=== PATIENT | male | born 1945 | race Caucasian/White ===

== ENCOUNTER → 2017-02-07 | Outpatient (CLI) | payer MEDICARE ==
[2017-02-07 13:12] LABS: Blood Urea Nitrogen 16 mg/dL (9-20); Non-African American GFR(MDRD) >60 (>60 ml/min/1.73 sqM)
--- NOTE | 2017-02-07 14:24 | CT ---
EXAMINATION TYPE: CT abdomen w con DATE OF EXAM: 02/07/2017 COMPARISON: NONE INDICATION: RLQ pain DLP: 1403.7 mGycm, Automated exposure control for dose reduction was used. CONTRAST: 100 mL of Omnipaque 300. Study performed with Oral Contrast TECHNIQUE: Axial images were obtained from above the diaphragm to the pubic rami in the axial plane a t 5 mm thick sections. Reconstructed images are reviewed on the computer in the coronal plane. FINDINGS: Limited CT sections are obtained the lung bases. The lung bases are clear. Coronary artery calcific ation is noted. CT ABDOMEN: Liver: There is moderate fatty infiltration to the liver. No discrete masses are evident. Spleen: Normal Pancreas: Normal Adrenal glands: The adrenal glands are normal. Gallbladder: Normal Kidneys: No masses are evident. No hydronephrosis is present. No cysts are present. Delayed images were obtained through the kidneys, which remain unremarkable. Aorta: Vascular calcification is within the aorta. Inferior vena cava: Normal. Loops of bowel within the abdomen are normal. There are loops of bowel which are incompletely dis tended or lack oral contrast limiting their evaluation. Appendix is nyozo-mw-[id number] right lower quadrant within the pelvis is excluded from the kgspm-sz-wixg. Hernias cannot be evaluated in the inguinal region. Note is made of postsurgical changes within the l umbar spine. No obvious lytic or sclerotic metastases are identified. IMPRESSIONS: 1. Moderate fatty infiltration of the liver. 2. Exam is limited to the CT abdomen. Appendix right lower quadrant within the pelvis and pelvic osse ous structures including the inguinal regions are out of the [id number]-ej-[id number]. CT pelvis can be performe d for additional evaluation of right lower quadrant pain.
== END | disposition home or self-care (01) ==
LOC: RADCTMAIN 12:15
PROVIDERS: ATTEND Family Medicine
DX: K76.0 Fatty (change of) liver, not elsewhere classified (principal)
CPT/HCPCS: 82565; 84520; 74160; 36415; Q9967

== ENCOUNTER → 2019-01-03 | Outpatient (CLI) | payer MEDICARE, OTHER ==
[2019-01-03 14:21] LABS: African American GFR (CKD) >90 (>60 ml/min/1.73 sqM); Blood Urea Nitrogen 15 mg/dL (9-20); Non-African American GFR(CKD) 87 (>60 ml/min/1.73 sqM)
--- NOTE | 2019-01-04 05:20 | CT ---
EXAMINATION TYPE: CT abdomen pelvis w con DATE OF EXAM: 01/03/2019 COMPARISON: CT abdomen 02/07/2017 HISTORY: 73-year-old male Pelvic and perineal pain. RLQ pain. Hx lymphoma, prostate ca TECHNIQUE: Contiguous axial scanning of the abdomen and pelvis following administration of 100 ml Iso annabella 300 IV contrast. Delayed images through the kidneys and coronal/sagittal reconstructions perform ed. CT DLP: 1298.30 mGycm Automated exposure control for dose reduction was used. FINDINGS: Heart normal size without pericardial effusion. Strandy atelectasis at the lung bases without pleural effusion. Liver enlarged measuring 24.0 cm with low attenuation. Subcentimeter hypodensity posterior right hepa tic dome is unchanged from 2017 suggesting benign cyst. A couple additional scattered tiny subcentime ter hypodensities also likely represent cysts. No biliary ductal dilatation. Portal venous system is patent. Gallbladder, adrenal glands, spleen, and pancreas appear within normal limits. A few scattered cortical cysts within the kidneys, largest measuring 1.4 cm, unchanged from 2017. Left kidney, however, shows some patchy hypodensity medial aspect of the upper pole, refer to axial i mage 37 of the delayed kidney images, series 5. On the coronal series, this corresponds to beam harde johnny artifact in a linear, bandlike distribution. Ifbt-zt-ugnwtpym atherosclerotic calcifications infrarenal abdominal aorta without aneurysm. No dilated small bowel, free fluid, or free air. No mesenteric or retroperitoneal lymphadenopathy. Scattered mild stool. Generalized colonic diverticulosis no pericolonic inflammatory change. The appendix is located within the right inguinal canal, refer to axial image 86 and coronal image 28 . No associated thickening, fluid distention, or surrounding inflammation. Bladder urine distended. Multiple pelvic limits. No abnormal fluid collection in the pelvis or pelvic lymphadenopathy. Bones: Mild degenerative changes at the hips. Left L5 hemisacralization. Posterior and interbody lumb ar fusion from L1 through L5 levels with corresponding laminectomies. IMPRESSION: 1. SMALL RIGHT INGUINAL HERNIA CONTAINING THE ENTIRE LENGTH OF THE APPENDIX. NO SPECIFIC SIGNS OF ACU TE APPENDICITIS AT THIS TIME. NOTE THAT CASES OF APPENDICEAL INCARCERATION WITHIN THE HERNIA AND ACUT E APPENDICITIS (AMYAND HERNIA) HAVE BEEN DESCRIBED. NO ACUTE CHANGES AT THIS TIME. 2. GENERALIZED COLONIC DIVERTICULOSIS WITHOUT EVIDENCE FOR ACUTE DIVERTICULITIS. 3. HEPATOMEGALY (24.0 CM) WITH HEPATIC STEATOSIS.
== END | disposition home or self-care (01) ==
LOC: RADCTMAIN 13:08
PROVIDERS: ATTEND Family Medicine
DX: K40.90 Unilateral inguinal hernia, without obstruction or gangrene, not specified as recurrent (principal); K57.30 Diverticulosis of large intestine without perforation or abscess without bleeding; K76.0 Fatty (change of) liver, not elsewhere classified
CPT/HCPCS: 82565; 84520; 74177; 36415; Q9967 ×2

== ENCOUNTER → 2019-09-27 | Outpatient (CLI) | payer MEDICARE, OTHER ==
--- NOTE | 2019-09-27 11:56 | XR ---
EXAMINATION TYPE: XR cervical spine limited DATE OF EXAM: 09/27/2019 COMPARISON: NONE HISTORY: Pain TECHNIQUE: 2 views are submitted. FINDINGS: The odontoid is intact. There are no compression deformities. The prevertebral soft tissue structur es are within normal limits. Severe degenerative disc disease and spurring C3-C4 with posterior spon dylosis and facet arthropathy Postsurgical changes involving C4-C7. Multilevel facet arthropathy. Calcification soft tissue the nec k likely vascular. IMPRESSION: 1. Severe degenerative disc disease with spurring C3-C4. Multilevel facet arthropathy. 2. Postsurgical changes..
--- NOTE | 2019-09-27 12:00 | XR ---
EXAM TYPE: LUMBAR SPINE X RAY SERIES COMPARISON: 08/01/2011 HISTORY: Pain TECHNIQUE: 4 views are submitted. FINDINGS: Extensive postsurgical changes noted. There now appears to be severe degenerative disc disease at the approximate level of L1-L2. Vascular calcifications are noted. There appear to be 6 lumbar vertebral body. IMPRESSION: 1. Postsurgical changes with severe degenerative disc disease and vacuum disc at L1-L2.
== END | disposition home or self-care (01) ==
LOC: RADXRYALE 10:39
PROVIDERS: ATTEND Family Medicine
DX: M50.31 Other cervical disc degeneration, high cervical region (principal); M51.36 Other intervertebral disc degeneration, lumbar region; M47.812 Spondylosis without myelopathy or radiculopathy, cervical region; Z98.890 Other specified postprocedural states
CPT/HCPCS: 72040; 72100

== ENCOUNTER → 2019-10-04 | Outpatient (CLI) | payer MEDICARE, OTHER ==
--- NOTE | 2019-10-05 03:30 | MR ---
EXAMINATION TYPE: MR cspine/lspine wo/w con DATE OF EXAM: 10/04/2019 COMPARISON: Lumbar spine MR scan 03/30/2011 HISTORY: Neck clicking, LBP, hx cervical/lumbar surgery CONTRAST: Standard multiplanar, multisequence MRI departmental protocol utilizing 9.5 mL intravenous Gadavist g adolinium contrast. Cervical spine: Cervical vertebra have normal alignment. There is metal artifact from anterior fusion surgery from C4 to C7. Detail is limited of the vertebral bodies. There is a 5 x 4 mm focus of increased signal with in the cervical spinal cord at the C5-6 level. There is no expansion. The brainstem is intact. There is posterior disc herniation and spur formation at C3-4 with resultant 5 mm spinal stenosis. I see no focal bone destruction. The contrast images of the cervical spine show no pathologic enhancement. Th ere is no compression fracture. IMPRESSION: Multilevel fusion surgery. 5 mm spinal stenosis due to disc herniation and spur formation at C3-4. Focus of increased signal without enhancement or enlargement in the cervical cord at C5-6 level and c onsistent with myelomalacia. Lumbar spine: There is multilevel posterior fusion surgery with metal artifact from L1 to L5. There is no significa nt compression deformity of the vertebral bodies. There is disc prosthesis from L1 to L5. There is mu ltilevel laminectomy. I see no lumbar paraspinal mass. Contrast images show no pathologic enhancement . There is L1 to posterior mild disc bulging and herniation with some encroachment on the spinal gloria l. There is some lateral recess stenosis at L1-2. I see no pathologic enhancement. IMPRESSION: Multilevel fusion surgery. There is a mild relative spinal stenosis at L1-2 which is improved compar ed to old exam. No fracture seen.
== END | disposition home or self-care (01) ==
LOC: RADMRIMAIN 16:19
PROVIDERS: ATTEND Family Medicine
DX: M48.02 Spinal stenosis, cervical region (principal); M48.061 Spinal stenosis, lumbar region without neurogenic claudication; Z98.1 Arthrodesis status
CPT/HCPCS: 72156; 72158; A9585

== ENCOUNTER 2020-10-01 02:44 | Emergency (ER) | payer MEDICARE, OTHER ==
--- NOTE | 2020-10-01 03:24 | ED ---
Abdominal Pain HPI - General Chief Complaint: Abdominal Pain Stated Complaint: Abdominal Pain Time Seen by Provider: 10/01/20 03:10 Source: patient, family Mode of arrival: wheelchair Limitations: no limitations - History of Present Illness MD Complaint: abdominal pain Onset/Timin -: hour(s) Location: RLQ Radiation: none Migration to: no migration Severity: moderate Quality: other ("drawing") Consistency: colicky Improves With: nothing Worsens With: movement Associated Symptoms: vomiting Treatments Prior to Arrival: other (Tylenol) - Related Data Previous Rx's Medication Instructions Recorded HYDROcodone/APAP 5-325MG [[place] 1 tab PO Q4HR PRN 3 Days #18 tab 10/01/20 5-325] Ondansetron Odt [Zofran ODT] 4 mg PO Q8HR PRN #10 tab 10/01/20 Tamsulosin [Flomax] 0.4 mg PO DAILY #14 cap 10/01/20 Allergies Allergy/AdvReac Type Severity Reaction Status Date / Time codeine Allergy Nausea & Verified 10/01/20 02:54 Vomiting Review of Systems ROS Statement: Those systems with pertinent positive or pertinent negative responses have been documented in the HPI. ROS Other: All systems not noted in ROS Statement are negative. Constitutional: Denies: fever, chills Respiratory: Denies: cough, dyspnea Cardiovascular: Denies: chest pain, palpitations, edema Gastrointestinal: Reports: abdominal pain, nausea, vomiting. Denies: diarrhea, constipation, melena, hematochezia Genitourinary: Denies: dysuria, frequency, hematuria, testicular pain, testicular mass Musculoskeletal: Denies: back pain Skin: Denies: rash Neurological: Denies: headache, weakness, numbness Past Medical History Past Medical History: Diabetes Mellitus, Hypertension, Prostate Disorder Additional Past Medical History / Comment(s): back pain History of Any Multi-Drug Resistant Organisms: None Reported Past Surgical History: Orthopedic Surgery Past Psychological History: No Psychological Hx Reported Smoking Status: Current every day smoker Past Alcohol Use History: None Reported Past Drug Use History: None Reported General Exam Limitations: no limitations General appearance: alert, in no apparent distress Head exam: Present: atraumatic, normocephalic Eye exam: Present: normal appearance. Absent: scleral icterus, conjunctival injection ENT exam: Present: normal oropharynx Neck exam: Present: normal inspection Respiratory exam: Present: normal lung sounds bilaterally. Absent: respiratory distress, wheezes, rales, rhonchi, stridor Cardiovascular Exam: Present: regular rate, normal rhythm, normal heart sounds. Absent: systolic murmur, diastolic murmur, rubs, gallop GI/Abdominal exam: Present: soft, tenderness (Mild right lower quadrant tenderness). Absent: distended, guarding, rebound, rigid, mass Extremities exam: Present: normal inspection, normal capillary refill. Absent: pedal edema, calf tenderness Back exam: Present: normal inspection. Absent: CVA tenderness (R), CVA tenderness (L) Neurological exam: Present: alert Skin exam: Present: warm, dry, intact, normal color. Absent: rash Course Vital Signs 10/01/20 10/01/20 10/01/20 02:48 04:00 05:57 Temperature 97.8 F 98.5 F Pulse Rate 65 69 66 Respiratory 22 18 18 Rate Blood Pressure 163/82 123/71 127/64 O2 Sat by Pulse 99 97 97 Oximetry Medical Decision Making - Lab Data Result diagrams: 10/01/20 03:56 10/01/20 03:56 Lab Results 10/01/20 10/01/20 10/01/20 Range/Units 02:57 03:56 03:56 WBC 8.5 (3.8-10.6) k/uL RBC 4.47 (4.30-5.90) m/uL Hgb 13.5 (13.0-17.5) gm/dL Hct 39.7 (39.0-53.0) % MCV 88.9 (80.0-100.0) fL MCH 30.1 (25.0-35.0) pg MCHC 33.9 (31.0-37.0) g/dL RDW 13.0 (11.5-15.5) % Plt Count 229 (150-450) k/uL MPV 6.8 Neutrophils % 75 % Lymphocytes % 16 % Monocytes % 6 % Eosinophils % 2 % Basophils % 1 % Neutrophils # 6.4 (1.3-7.7) k/uL Lymphocytes # 1.4 (1.0-4.8) k/uL Monocytes # 0.5 (0-1.0) k/uL Eosinophils # 0.2 (0-0.7) k/uL Basophils # 0.1 (0-0.2) k/uL Sodium 139 (137-145) mmol/L Potassium 4.1 (3.5-5.1) mmol/L Chloride 109 H (98-107) mmol/L Carbon Dioxide 24 (22-30) mmol/L Anion Gap 6 mmol/L BUN 24 H (9-20) mg/dL Creatinine 1.08 (0.66-1.25) mg/dL Est GFR (CKD-EPI)AfAm 78 (>60 ml/min/1.73 sqM) Est GFR (CKD-EPI)NonAf 68 (>60 ml/min/1.73 sqM) Glucose 132 H (74-99) mg/dL Calcium 10.2 (8.4-10.2) mg/dL Total Bilirubin 0.3 (0.2-1.3) mg/dL AST 28 (17-59) U/L ALT 19 (4-49) U/L Alkaline Phosphatase 65 (38-126) U/L Total Protein 6.9 (6.3-8.2) g/dL Albumin 4.3 (3.5-5.0) g/dL Amylase 52 (30-110) U/L Lipase 172 (23-300) U/L Urine Color Yellow Urine Appearance Clear (Clear) Urine pH 6.0 (5.0-8.0) Ur Specific [place] 1.024 (1.001-1.035) Urine Protein Negative (Negative) Urine Glucose (UA) Negative (Negative) Urine Ketones Negative (Negative) Urine Blood Small H (Negative) Urine Nitrite Negative (Negative) Urine Bilirubin Negative (Negative) Urine Urobilinogen <2.0 (<2.0) mg/dL Ur Leukocyte Esterase Negative (Negative) Urine RBC 16 H (0-5) /hpf Urine WBC 4 (0-5) /hpf Ur Squamous Epith Cells 2 (0-4) /hpf Calcium Oxalate Crystal Many H (None) /hpf Hyaline Casts 1 (0-2) /lpf Urine Mucus Many H (None) /hpf Disposition Clinical Impression: Calculus of kidney Disposition: HOME SELF-CARE Condition: Good Instructions (If sedation given, give patient instructions): Kidney Stones (ED) Prescriptions: Tamsulosin [Flomax] 0.4 mg PO DAILY #14 cap HYDROcodone/APAP 5-325MG [[place] 5-325] 1 tab PO Q4HR PRN 3 Days #18 tab PRN Reason: Pain Ondansetron Odt [Zofran ODT] 4 mg PO Q8HR PRN #10 tab PRN Reason: Nausea Is patient prescribed a controlled substance at d/c from ED?: Yes When asked, does pt state using other controlled substances?: No If prescribed controlled substance>3 days was MAPS reviewed?: Prescribed <3 Days If opioid is for acute pain is fill amount 7 days or less?: Yes If Rx opioid, was Start Talking consent form obtained?: Yes Referrals: Joe Grimaldo DO [Primary Care Provider] - 1-2 days
[2020-10-01] MEDS ORDERED: MORPHINE SULFATE 4 MG/ML SYRINGE IV STA (03:28)
--- NOTE | 2020-10-01 03:38 | CT ---
EXAMINATION TYPE: CT abdomen pelvis wo con DATE OF EXAM: 10/01/2020 COMPARISON: 01/03/2019 HISTORY: RLQ pain CT DLP: 810 mGycm Automated exposure control for dose reduction was used. Images obtained from the diaphragm to the floor the pelvis with no contrast. Lung bases are clear. There is no pleural effusion. Heart size is normal. There is no pericardial eff usion. There is coronary artery calcification. The liver spleen appear intact. Gallbladder appears intact. The bile ducts are not dilated. There is no evidence of pancreatic mass. There is no adrenal mass. There is some stranding around both kidneys and more on the right side. The re is right-sided hydronephrosis and hydroureter. There is 3 mm calculus at the right ureterovesical junction. Urinary bladder is almost empty. There is no inguinal hernia. There is no free fluid in the pelvis. There is no evidence of a pelvic mass. There are phleboliths in the pelvis. The appendix bon ears normal. There is no mesenteric edema. There is no ascites or free air. There is no bowel obstruction. There is multilevel lumbar laminectomy defect. There is posterior screws with metal artifact. There i s multilevel degenerative disc space narrowing. There is no evidence of a significant compression def ormity. The bony pelvis is intact. The hip joints are intact. IMPRESSION: Obstructing calculus at the ureteral vesicle junction on the right side with right-sided hydronephros is and hydroureter. Obstruction is new compared to old exam. Normal appendix.
[2020-10-01] MEDS ORDERED: TAMSULOSIN 0.4 MG CAP.ER.24H PO STA (03:58)
[2020-10-01 04:10] LABS: Basophils # (A) 0.1 k/uL (0-0.2); Basophils % (A) 1 %; Eosinophils # (A) 0.2 k/uL (0-0.7); Eosinophils % (A) 2 %; HCT 39.7 % (39.0-53.0); HGB 13.5 gm/dL (13.0-17.5); Lymphocytes # (A) 1.4 k/uL (1.0-4.8); Lymphocytes % (A) 16 %; MCH 30.1 pg (25.0-35.0); MCHC 33.9 g/dL (31.0-37.0); MCV 88.9 fL (80.0-100.0); Mean Platelet Volume 6.8; Monocytes # (A) 0.5 k/uL (0-1.0); Monocytes % (A) 6 %; Neutrophils # (A) 6.4 k/uL (1.3-7.7); Neutrophils % (A) 75 %; Platelet Count 229 k/uL (150-450); RBC 4.47 m/uL (4.30-5.90); WBC 8.5 k/uL (3.8-10.6)
[2020-10-01 04:23] LABS: Albumin 4.3 g/dL (3.5-5.0); Calcium 10.2 mg/dL (8.4-10.2); Potassium 4.1 mmol/L (3.5-5.1); Total Bilirubin 0.3 mg/dL (0.2-1.3); Total Protein 6.9 g/dL (6.3-8.2)
[2020-10-01 04:27] LABS: Appearance,Urine Clear (Clear); Bilirubin,Urine Negative (Negative); Blood,Urine Small (Negative); Calcium Oxalate Crystals,Urine Many /hpf; Color,Urine Yellow; Glucose,Urine (UA) Negative (Negative); Hyaline Casts,Urine 1 /lpf (0-2); Ketones,Urine Negative (Negative); Leukocyte Esterase,Urine Negative (Negative); Mucus,Urine Many /hpf; Nitrite,Urine Negative (Negative); Protein,Urine Negative (Negative); RBC,Urine 16 /hpf (0-5); Specific Gravity,Urine 1.024 (1.001-1.035); Squamous Epithelial Cell,Urine 2 /hpf (0-4); Urobilinogen,Urine <2.0 mg/dL (<2.0); WBC,Urine 4 /hpf (0-5)
[2020-10-01 05:58] VITALS: RESP 18
[2020-10-01 06:01] VITALS: BP 127/64; PULSE 66; TEMP 98.5
== END 2020-10-01 05:57 | disposition home or self-care (01) ==
LOC: EC 02:44
DX: N20.0 Calculus of kidney (principal); I10 Essential (primary) hypertension; F17.200 Nicotine dependence, unspecified, uncomplicated; E11.9 Type 2 diabetes mellitus without complications
CPT/HCPCS: 36415; 80053; 82150; 83690; 85025; 81001; 74176; 99284; 96374; J2270

== ENCOUNTER → 2020-11-06 | Outpatient (CLI) | payer MEDICARE, OTHER ==
--- NOTE | 2020-11-06 15:56 | XR ---
EXAMINATION TYPE: XR shoulder complete RT DATE OF EXAM: 11/06/2020 COMPARISON: NONE HISTORY: Pain TECHNIQUE: Three views are submitted. FINDINGS: The osseous structures are intact. There is no acute fracture or dislocation. There is AC joint arth ropathy. IMPRESSION: 1. AC joint arthropathy. If there is concern for rotator cuff injury correlate with MRI.
== END | disposition home or self-care (01) ==
LOC: RADXRYALE 15:26
PROVIDERS: ATTEND Family Medicine
DX: M12.811 Other specific arthropathies, not elsewhere classified, right shoulder (principal)

== ENCOUNTER → 2022-08-09 | Outpatient (CLI) | payer MEDICARE ==
--- NOTE | 2022-08-10 08:15 | XR ---
EXAMINATION TYPE: XR cervical spine comp DATE OF EXAM: 08/09/2022 COMPARISON: 09/27/2019 HISTORY: Pain TECHNIQUE: Four views are submitted. FINDINGS: The odontoid is intact. There are no compression deformities. The prevertebral soft tissue structur es are within normal limits. Postsurgical changes at levels C4 7. Severe degenerative disc disease p osterior spondylosis and spurring at C3-C4. Multilevel facet arthropathy is multilevel bilateral fora jorge approach. IMPRESSION: 1. Postsurgical changes. 2. Severe degenerative disc disease C3-C4. 3. Severe multilevel facet arthropathy with suspected multilevel foraminal encroachment..
== END | disposition home or self-care (01) ==
LOC: RADXRYALE 16:07
PROVIDERS: ATTEND Family Medicine
DX: M50.31 Other cervical disc degeneration, high cervical region (principal); M47.812 Spondylosis without myelopathy or radiculopathy, cervical region
CPT/HCPCS: 72050

== ENCOUNTER → 2024-03-05 | Outpatient (CLI) | payer MEDICARE ==
--- NOTE | 2024-03-05 12:39 | MR ---
EXAMINATION TYPE: MR humerus RT wo con DATE OF EXAM: 03/05/2024 12:22 PM COMPARISON: Correlation shoulder radiograph 11/06/2020 CLINICAL INDICATION: Male, 78 years old with history of M79.621 pain R upper arm, Rt shoulder/arm diandra n, unable to lift, bruising in bicep TECHNIQUE: Multiplanar, multisequence images of the right humerus were obtained without IV contrast. FINDINGS: The bicipital groove at the proximal arm is empty with some diffuse synovial fluid noted here. There is a retracted stump of the long head biceps tendon at the proximal third arm level measuring 1 1.1 cm from the top of the humeral head. The adjacent short head biceps remains intact. Heterogeneous appearance to the superior labrum. Unable to exclude underlying superior labral tear. M ild degenerative spurring inferior humeral head. There is moderate degenerative change at the AC joint with joint space narrowing and prominent margin al spurring. Irregularity and cystic change at the level of the greater tuberosity. Overall preserved supraspinatus and infraspinatus tendon volume. There may be a small tear involving the inferior most fibers of the subscapularis tendon on sagittal series 802 image 8. The majority of the subscapularis tendon appears intact. No rotator cuff muscle atrophy seen. No effusion within the subacromial/subdeltoid bursa. Some patchy red marrow hyperplasia is present. No suspicious bone marrow replacement. IMPRESSION: 1. Proximal long head biceps tendon rupture. The bicipital groove is empty. The retracted stump is at the upper third arm level measuring 11.1 cm away from the top of the humeral head. 2. Heterogeneous appearance to the superior labrum. Unable to exclude a superior labral tear. 3. Moderate AC joint OA and rotator cuff tendinosis. There may be a small tear involving the inferior most fibers of the subscapularis tendon. [facility], , 03/05/2024 12:37 PM
== END | disposition home or self-care (01) ==
LOC: RADMRIMAIN 11:25
PROVIDERS: ATTEND Family Medicine
DX: S46.101A Unspecified injury of muscle, fascia and tendon of long head of biceps, right arm, initial encounter (principal); M79.621 Pain in right upper arm

== ENCOUNTER → 2024-06-14 | Outpatient (CLI) | payer MEDICARE ==
--- NOTE | 2024-06-14 10:29 | XR ---
EXAMINATION TYPE: XR cervical spine comp DATE OF EXAM: 06/14/2024 TECHNIQUE: Frontal, lateral, oblique, swimmers, and open mouth view of the cervical spine are obtaine d. CLINICAL INDICATION: Male, 78 years old with history of [id number] CERVICALGIA,CDD,THOR PAIN, p ain COMPARISON: Prior cervical spine x-ray August 09, 2022 FINDINGS: The cervical spine is visualized from C1 thru the bottom of C7 level, it is stable and sat isfactory in alignment . The pre-vertebral soft tissue appears within normal limits. Anterior fusion device at C3-C4 level is redemonstrated. Anterior fusion plate with artificial disc material C4-C7 l evels is again seen. Ossific fusion at these levels is present. Overlying soft tissue is unremarkable . IMPRESSION: As above. No significant change from most recent prior. [facility], , 06/14/2024 10:27 AM
--- NOTE | 2024-06-14 10:31 | XR ---
EXAMINATION TYPE: XR thoracic spine complete DATE OF EXAM: 06/14/2024 CLINICAL INDICATION: Male, 78 years old with history of [id number] CERVICALGIA,DDD,THOR PAIN, p ain TECHNIQUE: Frontal, lateral, and swimmer's view of thoracic spine are obtained. COMPARISON: None. FINDINGS: Thoracic spine show dextroconvex scoliosis centered in the mid to lower thoracic spine. Ve rtebral body heights are preserved. Mild to moderate multilevel disc space narrowing. Moderate to sev ere multilevel anterior and lateral spurring is seen. Surgical change of the lumbar spine is partiall y imaged. IMPRESSION: As above. [facility], , 06/14/2024 10:29 AM
== END | disposition home or self-care (01) ==
LOC: RADXRYALE 09:28
PROVIDERS: ATTEND Family Medicine
DX: M50.323 Other cervical disc degeneration at C6-C7 level (principal); M41.84 Other forms of scoliosis, thoracic region; Z98.1 Arthrodesis status
CPT/HCPCS: 72050; 72072

== ENCOUNTER → 2024-09-27 | Outpatient (CLI) | payer MEDICARE ==
--- NOTE | 2024-09-27 11:10 | US ---
EXAMINATION TYPE: US arterial LE single level DATE OF EXAM: 09/27/2024 9:47 AM COMPARISONS: None. 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 History of: Smoker: n Hypertension: y Diabetic: y Hyperlipidemia: y TIA/CVA: n Previous Vascular Surgery: n CAD: n VT: n Vascular Ulcers: n Claudication: n Gangrene: n FINDINGS: Doppler Waveforms: Right: Multiphasic Left: Multiphasic Brachial Artery systolic pressure: Right: 151 Left: 153 Posterior Tibial artery systolic pressure: Right: 191 Left: 182 Dorsalis Pedis artery systolic pressure: Right: 180 Left: 181 Ankle-Brachial Indices: Right: 1.3 Left: 1.2 IMPRESSION: TAMARA: Right: Normal 0.9 - 1.4, Recommendation: None Left: Normal 0.9 - 1.4, Recommendation: None [facility], , 09/27/2024 11:07 AM
== END | disposition home or self-care (01) ==
LOC: RADUSWWP 09:28
PROVIDERS: ATTEND Family Medicine
DX: I70.211 Atherosclerosis of native arteries of extremities with intermittent claudication, right leg (principal); I70.212 Atherosclerosis of native arteries of extremities with intermittent claudication, left leg; R53.83 Other fatigue
CPT/HCPCS: 93922